=== PATIENT | female | born 1950 | race Caucasian/White ===

== ENCOUNTER 2016-06-17 17:51 | Emergency (ER) | payer OTHER ==
[~2016-06-17 17:51] MED LIST: CRES5TAB; DIOV80TA
[2016-06-17] MEDS ORDERED: METHOCARBAMOL 500 MG TAB As Ordered ONE (18:50)
[2016-06-17] MEDS ORDERED: NORCO, ANEXSIA 5/325MG TABLET (HYDROcodone/ACETAMINOPHEN) As Ordered ONE (18:50)
--- NOTE | 2016-06-17 20:30 | REPUSA ---
CLINICAL HISTORY: Trauma. TECHNIQUE: Multiple axial CT images were obtained through the brain without IV contrast material. COMMENTS: There is normal configuration of sella turcica. There are no intra or extra-axial collections. There is no mass effect or midline shift. There is no evidence of hematoma formation. No hydrocephalus is p resent. The ventricles are symmetrical. No abnormal calcifications are present. There is diffuse age-appropriate cerebellar and cerebral atrophy with proportionally dilated ventricl es and cortical sulci. There are bilateral periventricular and subcortical white matter hypolucencies compatible with mild c hronic microvascular disease. Otherwise, no significant focal abnormalities are seen either in the posterior fossa or supratentoria l compartment. IMPRESSION: 1. Age-appropriate cerebellar and cerebral atrophy. 2. Mild chronic microvascular disease. 3. No evidence of acute intracranial pathology. Thank you for your kind referral of this patient.
--- NOTE | 2016-06-17 20:40 | REPUSA ---
CLINICAL HISTORY: Neck pain. Trauma. TECHNIQUE: Multiple axial images were obtained through the cervical spine. Images were also reconstru cted in coronal and sagittal planes. The study was performed without IV contrast. COMMENTS: There is no fracture or spondylolisthesis visualized. The paraspinal soft tissues are unremarkable. T here are no lytic or blastic lesions. Straightening of cervical lordosis is seen, suggesting muscular spasm. There is evidence of multileve l disk disease, demonstrated by osteophytosis and endplate sclerosis. IMPRESSION: 1. No fracture or spondylolisthesis. 2. Straightening of cervical lordosis is seen, suggesting muscular spasm. 3. Multilevel spondylosis. Thank you for your kind referral of this patient.
[2016-06-17] MEDS ORDERED: NORCO 5/325MG TABLET (BULK) As Ordered ONE (21:07)
--- NOTE | 2016-06-17 21:16 | EDDOCDS ---
Nurse's Notes [facility] Name: Nydia Bey Age: 66 yrs Sex: Female : 1950 Arrival Date: 06/17/2016 Time: 17:51 Bed PR1 / 25 Private MD: Candice Theodore M Diagnosis: Unspecified injury of head;Concussion;Cervicalgia Presentation: 06/17 17:54 Presenting complaint: Patient states: slipped in driveway approx 1600 today fell jjr backwards striking head, reports nausea and pain. Adult Sepsis Screening: The patient does not have new or worsening altered mentation. Patient's respiratory rate is less than 22. Systolic blood pressure is greater than 100. Patient has a qSOFA score of 0- Negative Sepsis Screen. Suicide/Homicide risk assessment- the patient denies having any suicidal and/or homicidal ideations and does not present with any other emotional, behavioral or mental health complaints. Status: Patient is not a telephone answering service operator or dependent. Transition of care: patient was not received from another setting of care. 17:54 Acuity: MARY Level 4 jjr 17:54 Method Of Arrival: Walkin/Carried/Asstd jjr Triage Assessment: 17:57 General: Appears in no apparent distress. Pain: Location: back of head, back of neck jjr and posterior chest. Neurological: Reports headache. GI: Reports nausea. Musculoskeletal: Range of motion intact in all extremities. cervical collar applied due to tenderness at base of spine. Historical: - Allergies: no known allergies; - Home Meds: 1. Diovan HCT 80-12.5 mg Oral tab 1 tab once daily - PMHx: Hypertension; - PSHx: ; - Social history: Smoking status: Patient states was never smoker of tobacco. No barriers to communication noted, The patient speaks fluent Macedonian. - Family history: Not pertinent. - : The pt / caregiver states he / she is not on anticoagulants. Home medication list is obtained from the patient. - Exposure Risk Screening:: None identified. Screenin:11 Screening information is obtained from the patient. Fall risk: No risks identified. kmg1 Assistance ADL's: requires no assistance with activities of daily living. Abuse/DV Screen: The patient / caregiver reports he/she is: not in a situation that causes fear, pain or injury. Nutritional screening: No deficits noted. Advance Directives: There is no active DNR order. home support is adequate. Assessment: 21:11 General: Appears in no apparent distress, comfortable, Behavior is appropriate for age, kmg1 cooperative. Pain: Location: posterior chest and back of neck and back of head Pain currently is 7 out of 10 on a pain scale. Quality of pain is described as aching. Neurological: Level of Consciousness is awake, alert, Oriented to person, place, time. Musculoskeletal: Circulation, motion, and sensation intact Capillary refill < 3 seconds. Vital Signs: 17:52 BP 132 / 60; Pulse 89; Resp 18; Temp 97.1(O); Pulse Ox 99% on R/A; Weight 58.97 kg (R); dd6 Height 5 ft. 2 in. (157.48 cm) (R); 21:00 BP 118 / 63; Pulse 65; Resp 18; Temp 97.3(O); Pulse Ox 100% on R/A; Pain 7/10; ct3 21:15 Pain 7/10; slm 21:15 Pain 7/10; slm 17:52 Body Mass Index 23.78 (58.97 kg, 157.48 cm) dd6 Vitals: 17:52 Log In Time: June 17, 2016 at 17:50. dd6 ED Course: 17:52 Patient visited by Sunny Roe PCA. dd6 17:52 Candice Theodore is Private Physician. dd6 17:52 Patient moved to Waiting dd6 17:53 Patient moved to Pre RCE dd6 17:55 Triage Initiated jjr 18:13 Patient moved to Triage 2 jmb 18:37 Alexsander Ortiz [facility]C [facility] ck7 18:37 Cristin Watson MD is Attending Physician. ck7 18:37 Patient visited by Alexsander Ortiz RPA-C. ck7 18:51 Patient moved to TR1 jmb 19:09 Patient visited by Inessa Lee PCA. ct3 19:43 Patient visited by Inessa Lee PCA. ct3 20:25 Patient visited by Inessa Lee PCA. ct3 20:33 CT Head Without Contrast Returned. EDMS 20:43 Patient moved to PR1 / 25 jmb 20:56 Patient visited by Inessa Lee PCA. ct3 20:58 Candice Theodore is Referral Physician. ck7 21:02 Patient visited by Inessa Lee PCA. ct3 21:14 The patient / caregiver is instructed regarding the plan of care and ED course. Patient slm has correct armband on for positive identification. Bed in low position. Call light in reach. Side rails up X 1. 21:14 No IV's were initiated during this patient's visit. No procedures done that require slm assistance. Administered Medications: 18:51 Drug: HYDROcodone-acetaminophen 1 tabs [hydrocodone 5 mg-acetaminophen 325 mg tablet (1 jmb tabs)] Route: PO; 21:15 Follow up: Pain 7/10 Adult slm 18:51 Drug: Methocarbamol 1 grams [methocarbamol 500 mg tablet (2 tabs)] Route: PO; jmb 21:15 Follow up: Pain 7/10 Adult slm Order Results: Radiology Order: CT Head Without Contrast Test: CT Head Without Contrast REASON FOR EXAMINATION: FALL, HEAD INJURY, +[place], +NAUSEA, R/O BLEED; ; CLINICAL HISTORY: Trauma.; TECHNIQUE: Multiple axial CT images were obtained through the brain without IV contrast material.; COMMENTS:; There is normal configuration of sella turcica. There are no intra or extra-axial collections. There; is no mass effect or midline shift. There is no evidence of hematoma formation. No hydrocephalus is p; resent. The ventricles are symmetrical. No abnormal calcifications are present.; There is diffuse age-appropriate cerebellar and cerebral atrophy with proportionally dilated ventricl; es and cortical sulci.; There are bilateral periventricular and subcortical white matter hypolucencies compatible with mild c; hronic microvascular disease.; Otherwise, no significant focal abnormalities are seen either in the posterior fossa or supratentoria; l compartment.; IMPRESSION:; 1. Age-appropriate cerebellar and cerebral atrophy.; 2. Mild chronic microvascular disease.; 3. No evidence of acute intracranial pathology.; Thank you for your kind referral of this patient.; ; ; Outcome: 20:59 Discharge ordered by Provider. ck7 21:14 Discharge Assessment: Patient awake, alert and oriented x 3. No cognitive and/or slm functional deficits noted. Patient verbalized understanding of disposition instructions. patient administered narcotics - yes. Pt provided with safe discharge. The following High Risk Discharge criteria are identified: None. Discharged to home ambulatory. Condition: good Condition: improved. Discharge instructions given to patient, Instructed on discharge instructions, follow up and referral plans. medication usage, no driving heavy equipment, Demonstrated understanding of instructions, medications, Pt was receptive of discharge instructions/ teaching. Prescriptions given X 3. CT Study completed. Property :Personal belongings accompany Pt. 21:15 Patient left the ED. slm Signatures: Dispatcher [employer] EDMS Sofiya Hopper, RN RN kmg1 Cara Baeza, RN RN jSunny Murguia, AUCTIONEER AUTOMOBILE AUCTIONEER AUTOMOBILE dd6 Inessa Lee, AUCTIONEER AUTOMOBILE AUCTIONEER AUTOMOBILE ct3 Alexsander Ortiz, RPA-C RPA-Cck7 Aidan Chau,RN RN Elizabeth Saeed,SURGICAL SERVICES DIRECTOR SURGICAL SERVICES DIRECTOR slm MTDIlda
--- NOTE | 2016-06-17 21:16 | EDDOCDS ---
Physician Documentation [facility] Name: Nydia Bey Age: 66 yrs Sex: Female : 1950 Arrival Date: 06/17/2016 Time: 17:51 Bed PR Private MD: Candice Theodore M Disposition: 06/17/16 20:59 Discharged to Home/Self Care. Impression: Unspecified injury of head, Concussion, Cervicalgia. - Condition is Stable. - Discharge Instructions: Concussion, Adult, Head Injury, Adult, Soft Tissue Injury of the Neck. - Prescriptions for Ibuprofen 600 mg Oral Tablet - take 1 tablet by ORAL route every 6 hours As needed take with food; 30 tablet. [place] 5- 325 mg Oral Tablet - take 1 tablet by ORAL route every 6 hours As needed MDD: 4 tabs; 16 tablet. Robaxin 500 mg Oral Tablet - take 2 tablet by ORAL route every 6 hours As needed; 40 tablet. - Medication Reconciliation, Local Pharmacy Hours form. - Follow up: Candice Theodore; When: 2 - 3 days; Reason: Recheck today's complaints, Continuance of care. - Problem is new. - Symptoms have improved. - Notes: USE MEDICATIONS INSTRUCTED, FOLLOW UP WITH YOUR DOCTOR IN 2-3 DAYS, RETURN TO THE ER IF THE SYMPTOMS WORSEN OR BECOME CONCERNING Historical: - Allergies: no known allergies; - Home Meds: 1. Diovan HCT 80-12.5 mg Oral tab 1 tab once daily - PMHx: Hypertension; - PSHx: ; - Social history: Smoking status: Patient states was never smoker of tobacco. No barriers to communication noted, The patient speaks fluent Botswanan. - Family history: Not pertinent. - : The pt / caregiver states he / she is not on anticoagulants. Home medication list is obtained from the patient. - Exposure Risk Screening:: None identified. Vital Signs: 06/17 17:52 BP 132 / 60; Pulse 89; Resp 18; Temp 97.1(O); Pulse Ox 99% on R/A; Weight 58.97 kg / dd6 130.01 lbs (R); Height 5 ft. 2 in. (157.48 cm) (R); 21:00 BP 118 / 63; Pulse 65; Resp 18; Temp 97.3(O); Pulse Ox 100% on R/A; Pain 7/10; ct3 21:15 Pain 7/10; slm 21:15 Pain 7/10; slm 17:52 Body Mass Index 23.78 (58.97 kg, 157.48 cm) dd6 MDM: 18:47 HYDROcodone-acetaminophen 5 mg-325 mg 1 tabs PO once ordered. ck7 18:47 Methocarbamol 1 grams PO once ordered. ck7 18:48 CT Head Without Contrast Ordered. EDMS 18:49 CT Spine,Cervical W/o Contrast Ordered. EDMS 21:00 HYDROcodone-acetaminophen 4 pack- 5 mg-325 mg 1 packets PO Per package directions; ck7 Dispense with patient. 1 po q4h prn for pain ordered. Administered Medications: 18:51 Drug: HYDROcodone-acetaminophen 1 tabs [hydrocodone 5 mg-acetaminophen 325 mg tablet (1 jmb tabs)] Route: PO; 21:15 Follow up: Pain 7 Adult slm 18:51 Drug: Methocarbamol 1 grams [methocarbamol 500 mg tablet (2 tabs)] Route: PO; jmb 21:15 Follow up: Pain 11/27 Adult slm Signatures: Dispatcher [employer] EDMS Cara Baeza, RN RN Alexsander Block, EDMUNDOC RPA-CckElizabeth Hazel LPN LPN Aidan Jimenez RN MTDD
--- NOTE | 2016-06-19 22:16 | EDDOCDS ---
Physician Documentation [facility] Name: Nydia Bey Age: 66 yrs Sex: Female : 1950 Arrival Date: 06/17/2016 Time: 17:51 Bed PR Private MD: Candice Theodore M Disposition: 06/17/16 20:59 Discharged to Home/Self Care. Impression: Unspecified injury of head, Concussion, Cervicalgia. - Condition is Stable. - Discharge Instructions: Concussion, Adult, Head Injury, Adult, Soft Tissue Injury of the Neck. - Prescriptions for Ibuprofen 600 mg Oral Tablet - take 1 tablet by ORAL route every 6 hours As needed take with food; 30 tablet. [place] 5- 325 mg Oral Tablet - take 1 tablet by ORAL route every 6 hours As needed MDD: 4 tabs; 16 tablet. Robaxin 500 mg Oral Tablet - take 2 tablet by ORAL route every 6 hours As needed; 40 tablet. - Medication Reconciliation, Local Pharmacy Hours form. - Follow up: Candice Theodore; When: 2 - 3 days; Reason: Recheck today's complaints, Continuance of care. - Problem is new. - Symptoms have improved. - Notes: USE MEDICATIONS INSTRUCTED, FOLLOW UP WITH YOUR DOCTOR IN 2-3 DAYS, RETURN TO THE ER IF THE SYMPTOMS WORSEN OR BECOME CONCERNING Historical: - Allergies: no known allergies; - Home Meds: 1. Diovan HCT 80-12.5 mg Oral tab 1 tab once daily - PMHx: Hypertension; - PSHx: ; - Social history: Smoking status: Patient states was never smoker of tobacco. No barriers to communication noted, The patient speaks fluent Uruguayan. - Family history: Not pertinent. - : The pt / caregiver states he / she is not on anticoagulants. Home medication list is obtained from the patient. - Exposure Risk Screening:: None identified. Vital Signs: 06/17 17:52 BP 132 / 60; Pulse 89; Resp 18; Temp 97.1(O); Pulse Ox 99% on R/A; Weight 58.97 kg / dd6 130.01 lbs (R); Height 5 ft. 2 in. (157.48 cm) (R); 21:00 BP 118 / 63; Pulse 65; Resp 18; Temp 97.3(O); Pulse Ox 100% on R/A; Pain 7/10; ct3 21:15 Pain 7/10; slm 21:15 Pain 7/10; slm 17:52 Body Mass Index 23.78 (58.97 kg, 157.48 cm) dd6 MDM: 18:47 HYDROcodone-acetaminophen 5 mg-325 mg 1 tabs PO once ordered. ck7 18:47 Methocarbamol 1 grams PO once ordered. ck7 18:48 CT Head Without Contrast Ordered. EDMS 18:49 CT Spine,Cervical W/o Contrast Ordered. EDMS 21:00 HYDROcodone-acetaminophen 4 pack- 5 mg-325 mg 1 packets PO Per package directions; ck7 Dispense with patient. 1 po q4h prn for pain ordered. 06/18 18:56 T-Sheet-- Draft Copy was scanned into [employer] and attached to record. kf3 Administered Medications: 06/17 18:51 Drug: HYDROcodone-acetaminophen 1 tabs [hydrocodone 5 mg-acetaminophen 325 mg tablet (1 jmb tabs)] Route: PO; 21:15 Follow up: Pain 7/10 Adult slm 18:51 Drug: Methocarbamol 1 grams [methocarbamol 500 mg tablet (2 tabs)] Route: PO; jmb 21:15 Follow up: Pain 7/10 Adult slm 21:17 Drug: HYDROcodone-acetaminophen 4 pack- 1 packets [hydrocodone 5 mg-acetaminophen 325 slm mg tablet (1 tabs)] {Co-Signature: kmg1 (Sofiya Hopper RN).} Route: PO; Signatures: Dispatcher [employer] EDHI Richy Arroyo, Reg Reg kf3 Cara Baeza, RN RN Alexsander Block, RPA-C RPA-Cck7 Elizabeth Hines LPN LPN slAidan Jimenez RN, RN The chart was reviewed and I authenticate all verbal orders and agree with the evaluation and treatment provided.Attachments: 06/18 18:56 T-Sheet-- Draft Copy kf3 Chart Complete MTDD
--- NOTE | 2016-06-19 22:16 | EDDOCDS ---
Nurse's Notes [facility] Name: Nydia Bey Age: 66 yrs Sex: Female : 1950 Arrival Date: 06/17/2016 Time: 17:51 Bed PR1 / 25 Private MD: Candice Theodore M Diagnosis: Unspecified injury of head;Concussion;Cervicalgia Presentation: 06/17 17:54 Presenting complaint: Patient states: slipped in driveway approx 1600 today fell jjr backwards striking head, reports nausea and pain. Adult Sepsis Screening: The patient does not have new or worsening altered mentation. Patient's respiratory rate is less than 22. Systolic blood pressure is greater than 100. Patient has a qSOFA score of 0- Negative Sepsis Screen. Suicide/Homicide risk assessment- the patient denies having any suicidal and/or homicidal ideations and does not present with any other emotional, behavioral or mental health complaints. Status: Patient is not a family services worker or dependent. Transition of care: patient was not received from another setting of care. 17:54 Acuity: MARY Level 4 jjr 17:54 Method Of Arrival: Walkin/Carried/Asstd jjr Triage Assessment: 17:57 General: Appears in no apparent distress. Pain: Location: back of head, back of neck jjr and posterior chest. Neurological: Reports headache. GI: Reports nausea. Musculoskeletal: Range of motion intact in all extremities. cervical collar applied due to tenderness at base of spine. Historical: - Allergies: no known allergies; - Home Meds: 1. Diovan HCT 80-12.5 mg Oral tab 1 tab once daily - PMHx: Hypertension; - PSHx: ; - Social history: Smoking status: Patient states was never smoker of tobacco. No barriers to communication noted, The patient speaks fluent Yakut. - Family history: Not pertinent. - : The pt / caregiver states he / she is not on anticoagulants. Home medication list is obtained from the patient. - Exposure Risk Screening:: None identified. Screenin:11 Screening information is obtained from the patient. Fall risk: No risks identified. kmg1 Assistance ADL's: requires no assistance with activities of daily living. Abuse/DV Screen: The patient / caregiver reports he/she is: not in a situation that causes fear, pain or injury. Nutritional screening: No deficits noted. Advance Directives: There is no active DNR order. home support is adequate. Assessment: 21:11 General: Appears in no apparent distress, comfortable, Behavior is appropriate for age, kmg1 cooperative. Pain: Location: posterior chest and back of neck and back of head Pain currently is 7 out of 10 on a pain scale. Quality of pain is described as aching. Neurological: Level of Consciousness is awake, alert, Oriented to person, place, time. Musculoskeletal: Circulation, motion, and sensation intact Capillary refill < 3 seconds. Vital Signs: 17:52 BP 132 / 60; Pulse 89; Resp 18; Temp 97.1(O); Pulse Ox 99% on R/A; Weight 58.97 kg (R); dd6 Height 5 ft. 2 in. (157.48 cm) (R); 21:00 BP 118 / 63; Pulse 65; Resp 18; Temp 97.3(O); Pulse Ox 100% on R/A; Pain 7/10; ct3 21:15 Pain 7/10; slm 21:15 Pain 7/10; slm 17:52 Body Mass Index 23.78 (58.97 kg, 157.48 cm) dd6 Vitals: 17:52 Log In Time: June 17, 2016 at 17:50. dd6 ED Course: 17:52 Patient visited by Sunny Roe PCA. dd6 17:52 Candice Theodore is Private Physician. dd6 17:52 Patient moved to Waiting dd6 17:53 Patient moved to Pre RCE dd6 17:55 Triage Initiated jjr 18:13 Patient moved to Triage 2 jmb 18:37 Alexsander Ortiz RPA-C is [facility]. ck7 18:37 Cristin Watson MD is Attending Physician. ck7 18:37 Patient visited by Alexsander Ortiz RPA-C. ck7 18:51 Patient moved to TR1 jmb 19:09 Patient visited by Inessa Lee PCA. ct3 19:43 Patient visited by Inessa Lee PCA. ct3 20:25 Patient visited by Inessa Lee PCA. ct3 20:33 CT Head Without Contrast Returned. EDMS 20:43 Patient moved to PR1 / 25 jmb 20:56 Patient visited by Inessa Lee PCA. ct3 20:58 Candice Theodore is Referral Physician. ck7 21:02 Patient visited by Inessa Lee PCA. ct3 21:14 The patient / caregiver is instructed regarding the plan of care and ED course. Patient slm has correct armband on for positive identification. Bed in low position. Call light in reach. Side rails up X 1. 21:14 No IV's were initiated during this patient's visit. No procedures done that require slm assistance. 21:18 CT Spine,Cervical W/o Contrast Returned. EDMS 06/18 18:56 T-Sheet-- Draft Copy was scanned into [employer] and attached to record. kf3 Administered Medications: 06/17 18:51 Drug: HYDROcodone-acetaminophen 1 tabs [hydrocodone 5 mg-acetaminophen 325 mg tablet (1 jmb tabs)] Route: PO; 21:15 Follow up: Pain 7/10 Adult slm 18:51 Drug: Methocarbamol 1 grams [methocarbamol 500 mg tablet (2 tabs)] Route: PO; jmb 21:15 Follow up: Pain 7/10 Adult slm 21:17 Drug: HYDROcodone-acetaminophen 4 pack- 1 packets [hydrocodone 5 mg-acetaminophen 325 slm mg tablet (1 tabs)] {Co-Signature: kmg1 (Sofiya Hopper RN).} Route: PO; Order Results: Radiology Order: CT Head Without Contrast Test: CT Head Without Contrast REASON FOR EXAMINATION: FALL, HEAD INJURY, +[place], +NAUSEA, R/O BLEED; ; CLINICAL HISTORY: Trauma.; TECHNIQUE: Multiple axial CT images were obtained through the brain without IV contrast material.; COMMENTS:; There is normal configuration of sella turcica. There are no intra or extra-axial collections. There; is no mass effect or midline shift. There is no evidence of hematoma formation. No hydrocephalus is p; resent. The ventricles are symmetrical. No abnormal calcifications are present.; There is diffuse age-appropriate cerebellar and cerebral atrophy with proportionally dilated ventricl; es and cortical sulci.; There are bilateral periventricular and subcortical white matter hypolucencies compatible with mild c; hronic microvascular disease.; Otherwise, no significant focal abnormalities are seen either in the posterior fossa or supratentoria; l compartment.; IMPRESSION:; 1. Age-appropriate cerebellar and cerebral atrophy.; 2. Mild chronic microvascular disease.; 3. No evidence of acute intracranial pathology.; Thank you for your kind referral of this patient.; ; ; Radiology Order: CT Spine,Cervical W/o Contrast Test: CT Spine,Cervical W/o Contrast REASON FOR EXAMINATION: FALL, NECK INJURY R/O FX; ; CLINICAL HISTORY: Neck pain. Trauma.; TECHNIQUE: Multiple axial images were obtained through the cervical spine. Images were also reconstru; cted in coronal and sagittal planes. The study was performed without IV contrast.; COMMENTS:; There is no fracture or spondylolisthesis visualized. The paraspinal soft tissues are unremarkable. T; here are no lytic or blastic lesions.; Straightening of cervical lordosis is seen, suggesting muscular spasm. There is evidence of multileve; l disk disease, demonstrated by osteophytosis and endplate sclerosis.; IMPRESSION:; 1. No fracture or spondylolisthesis.; 2. Straightening of cervical lordosis is seen, suggesting muscular spasm.; 3. Multilevel spondylosis.; Thank you for your kind referral of this patient.; ; Outcome: 20:59 Discharge ordered by Provider. ck7 21:14 Discharge Assessment: Patient awake, alert and oriented x 3. No cognitive and/or slm functional deficits noted. Patient verbalized understanding of disposition instructions. patient administered narcotics - yes. Pt provided with safe discharge. The following High Risk Discharge criteria are identified: None. Discharged to home ambulatory. Condition: good Condition: improved. Discharge instructions given to patient, Instructed on discharge instructions, follow up and referral plans. medication usage, no driving heavy equipment, Demonstrated understanding of instructions, medications, Pt was receptive of discharge instructions/ teaching. Prescriptions given X 3. CT Study completed. Property :Personal belongings accompany Pt. 21:15 Patient left the ED. slm Signatures: Dispatcher [employer] EDMS Sofiya Hopper RN RN kmg1 Richy Arroyo, Reg Reg kf3 Cara Baeza RN RN jSunny Murguia, RUBBER GOODS TESTER RUBBER GOODS TESTER dd6 Inessa Lee, RUBBER GOODS TESTER RUBBER GOODS TESTER ct3 Alexsander Ortiz, RPA-C RPA-Cck7 Aidan Chau,RN RN jmb Elizabeth Hines,MERCHANDISE EXECUTION LEADER MERCHANDISE EXECUTION LEADER slm Sofiya Hopper RN kmg1 Chart Complete MTDD
--- NOTE | 2016-06-19 22:16 | EDDOCDS ---
Physician Documentation [facility] Name: Nydia Bey Age: 66 yrs Sex: Female : 1950 Arrival Date: 06/17/2016 Time: 17:51 Bed PR Private MD: Candice Theodore M Disposition: 06/17/16 20:59 Discharged to Home/Self Care. Impression: Unspecified injury of head, Concussion, Cervicalgia. - Condition is Stable. - Discharge Instructions: Concussion, Adult, Head Injury, Adult, Soft Tissue Injury of the Neck. - Prescriptions for Ibuprofen 600 mg Oral Tablet - take 1 tablet by ORAL route every 6 hours As needed take with food; 30 tablet. [place] 5- 325 mg Oral Tablet - take 1 tablet by ORAL route every 6 hours As needed MDD: 4 tabs; 16 tablet. Robaxin 500 mg Oral Tablet - take 2 tablet by ORAL route every 6 hours As needed; 40 tablet. - Medication Reconciliation, Local Pharmacy Hours form. - Follow up: Candice Theodore; When: 2 - 3 days; Reason: Recheck today's complaints, Continuance of care. - Problem is new. - Symptoms have improved. - Notes: USE MEDICATIONS INSTRUCTED, FOLLOW UP WITH YOUR DOCTOR IN 2-3 DAYS, RETURN TO THE ER IF THE SYMPTOMS WORSEN OR BECOME CONCERNING Historical: - Allergies: no known allergies; - Home Meds: 1. Diovan HCT 80-12.5 mg Oral tab 1 tab once daily - PMHx: Hypertension; - PSHx: ; - Social history: Smoking status: Patient states was never smoker of tobacco. No barriers to communication noted, The patient speaks fluent Montserratian. - Family history: Not pertinent. - : The pt / caregiver states he / she is not on anticoagulants. Home medication list is obtained from the patient. - Exposure Risk Screening:: None identified. Vital Signs: 06/17 17:52 BP 132 / 60; Pulse 89; Resp 18; Temp 97.1(O); Pulse Ox 99% on R/A; Weight 58.97 kg / dd6 130.01 lbs (R); Height 5 ft. 2 in. (157.48 cm) (R); 21:00 BP 118 / 63; Pulse 65; Resp 18; Temp 97.3(O); Pulse Ox 100% on R/A; Pain 7/10; ct3 21:15 Pain 7/10; slm 21:15 Pain 7/10; slm 17:52 Body Mass Index 23.78 (58.97 kg, 157.48 cm) dd6 MDM: 18:47 HYDROcodone-acetaminophen 5 mg-325 mg 1 tabs PO once ordered. ck7 18:47 Methocarbamol 1 grams PO once ordered. ck7 18:48 CT Head Without Contrast Ordered. EDMS 18:49 CT Spine,Cervical W/o Contrast Ordered. EDMS 21:00 HYDROcodone-acetaminophen 4 pack- 5 mg-325 mg 1 packets PO Per package directions; ck7 Dispense with patient. 1 po q4h prn for pain ordered. 06/18 18:56 T-Sheet-- Draft Copy was scanned into [employer] and attached to record. kf3 Administered Medications: 06/17 18:51 Drug: HYDROcodone-acetaminophen 1 tabs [hydrocodone 5 mg-acetaminophen 325 mg tablet (1 jmb tabs)] Route: PO; 21:15 Follow up: Pain 7/10 Adult slm 18:51 Drug: Methocarbamol 1 grams [methocarbamol 500 mg tablet (2 tabs)] Route: PO; jmb 21:15 Follow up: Pain 7/10 Adult slm 21:17 Drug: HYDROcodone-acetaminophen 4 pack- 1 packets [hydrocodone 5 mg-acetaminophen 325 slm mg tablet (1 tabs)] {Co-Signature: kmg1 (Sofiya Hopper RN).} Route: PO; Signatures: Dispatcher [employer] EDIA Richy Arroyo, Reg Reg kf3 Cara Baeza, RN RN Alexsander Block, RPA-C RPA-Cck7 Elizabeth Hines LPN LPN slAidan Jimenez RN, RN The chart was reviewed and I authenticate all verbal orders and agree with the evaluation and treatment provided.Attachments: 06/18 18:56 T-Sheet-- Draft Copy kf3 Chart Complete MTDD
--- NOTE | 2016-06-20 15:11 | EDDOCDS ---
Nurse's Notes [facility] Name: Nydia Bey Age: 66 yrs Sex: Female : 1950 Arrival Date: 06/17/2016 Time: 17:51 Bed PR1 / 25 Private MD: Candice Theodore M Diagnosis: Unspecified injury of head;Concussion;Cervicalgia Presentation: 06/17 17:54 Presenting complaint: Patient states: slipped in driveway approx 1600 today fell jjr backwards striking head, reports nausea and pain. Adult Sepsis Screening: The patient does not have new or worsening altered mentation. Patient's respiratory rate is less than 22. Systolic blood pressure is greater than 100. Patient has a qSOFA score of 0- Negative Sepsis Screen. Suicide/Homicide risk assessment- the patient denies having any suicidal and/or homicidal ideations and does not present with any other emotional, behavioral or mental health complaints. Status: Patient is not a convention services director or dependent. Transition of care: patient was not received from another setting of care. 17:54 Acuity: MARY Level 4 jjr 17:54 Method Of Arrival: Walkin/Carried/Asstd jjr Triage Assessment: 17:57 General: Appears in no apparent distress. Pain: Location: back of head, back of neck jjr and posterior chest. Neurological: Reports headache. GI: Reports nausea. Musculoskeletal: Range of motion intact in all extremities. cervical collar applied due to tenderness at base of spine. Historical: - Allergies: no known allergies; - Home Meds: 1. Diovan HCT 80-12.5 mg Oral tab 1 tab once daily - PMHx: Hypertension; - PSHx: ; - Social history: Smoking status: Patient states was never smoker of tobacco. No barriers to communication noted, The patient speaks fluent Wolof. - Family history: Not pertinent. - : The pt / caregiver states he / she is not on anticoagulants. Home medication list is obtained from the patient. - Exposure Risk Screening:: None identified. Screenin:11 Screening information is obtained from the patient. Fall risk: No risks identified. kmg1 Assistance ADL's: requires no assistance with activities of daily living. Abuse/DV Screen: The patient / caregiver reports he/she is: not in a situation that causes fear, pain or injury. Nutritional screening: No deficits noted. Advance Directives: There is no active DNR order. home support is adequate. Assessment: 21:11 General: Appears in no apparent distress, comfortable, Behavior is appropriate for age, kmg1 cooperative. Pain: Location: posterior chest and back of neck and back of head Pain currently is 7 out of 10 on a pain scale. Quality of pain is described as aching. Neurological: Level of Consciousness is awake, alert, Oriented to person, place, time. Musculoskeletal: Circulation, motion, and sensation intact Capillary refill < 3 seconds. Vital Signs: 17:52 BP 132 / 60; Pulse 89; Resp 18; Temp 97.1(O); Pulse Ox 99% on R/A; Weight 58.97 kg (R); dd6 Height 5 ft. 2 in. (157.48 cm) (R); 21:00 BP 118 / 63; Pulse 65; Resp 18; Temp 97.3(O); Pulse Ox 100% on R/A; Pain 7/10; ct3 21:15 Pain 7/10; slm 21:15 Pain 7/10; slm 17:52 Body Mass Index 23.78 (58.97 kg, 157.48 cm) dd6 Vitals: 17:52 Log In Time: June 17, 2016 at 17:50. dd6 ED Course: 17:52 Patient visited by Sunny Roe PCA. dd6 17:52 Candice Theodore is Private Physician. dd6 17:52 Patient moved to Waiting dd6 17:53 Patient moved to Pre RCE dd6 17:55 Triage Initiated jjr 18:13 Patient moved to Triage 2 jmb 18:37 Alexsander Ortiz R[facility]-C is [facility]. ck7 18:37 Cristin Watson MD is Attending Physician. ck7 18:37 Patient visited by Alexsander Ortiz RPA-C. ck7 18:51 Patient moved to TR1 jmb 19:09 Patient visited by Inessa Lee PCA. ct3 19:43 Patient visited by Inessa Lee PCA. ct3 20:25 Patient visited by Inessa Lee PCA. ct3 20:33 CT Head Without Contrast Returned. EDMS 20:43 Patient moved to PR1 / 25 jmb 20:56 Patient visited by Inessa Lee PCA. ct3 20:58 Candice Theodore is Referral Physician. ck7 21:02 Patient visited by Inessa Lee PCA. ct3 21:14 The patient / caregiver is instructed regarding the plan of care and ED course. Patient slm has correct armband on for positive identification. Bed in low position. Call light in reach. Side rails up X 1. 21:14 No IV's were initiated during this patient's visit. No procedures done that require slm assistance. 21:18 CT Spine,Cervical W/o Contrast Returned. EDMS 06/18 18:56 T-Sheet-- Draft Copy was scanned into [email or web address] and attached to record. kf3 Administered Medications: 06/17 18:51 Drug: HYDROcodone-acetaminophen 1 tabs [hydrocodone 5 mg-acetaminophen 325 mg tablet (1 jmb tabs)] Route: PO; 21:15 Follow up: Pain 7/10 Adult slm 18:51 Drug: Methocarbamol 1 grams [methocarbamol 500 mg tablet (2 tabs)] Route: PO; jmb 21:15 Follow up: Pain 7/10 Adult slm 21:17 Drug: HYDROcodone-acetaminophen 4 pack- 1 packets [hydrocodone 5 mg-acetaminophen 325 slm mg tablet (1 tabs)] {Co-Signature: kmg1 (Sofiya Hopper RN).} Route: PO; Order Results: Radiology Order: CT Head Without Contrast Test: CT Head Without Contrast REASON FOR EXAMINATION: FALL, HEAD INJURY, +[place], +NAUSEA, R/O BLEED; ; CLINICAL HISTORY: Trauma.; TECHNIQUE: Multiple axial CT images were obtained through the brain without IV contrast material.; COMMENTS:; There is normal configuration of sella turcica. There are no intra or extra-axial collections. There; is no mass effect or midline shift. There is no evidence of hematoma formation. No hydrocephalus is p; resent. The ventricles are symmetrical. No abnormal calcifications are present.; There is diffuse age-appropriate cerebellar and cerebral atrophy with proportionally dilated ventricl; es and cortical sulci.; There are bilateral periventricular and subcortical white matter hypolucencies compatible with mild c; hronic microvascular disease.; Otherwise, no significant focal abnormalities are seen either in the posterior fossa or supratentoria; l compartment.; IMPRESSION:; 1. Age-appropriate cerebellar and cerebral atrophy.; 2. Mild chronic microvascular disease.; 3. No evidence of acute intracranial pathology.; Thank you for your kind referral of this patient.; ; ; Radiology Order: CT Spine,Cervical W/o Contrast Test: CT Spine,Cervical W/o Contrast REASON FOR EXAMINATION: FALL, NECK INJURY R/O FX; ; CLINICAL HISTORY: Neck pain. Trauma.; TECHNIQUE: Multiple axial images were obtained through the cervical spine. Images were also reconstru; cted in coronal and sagittal planes. The study was performed without IV contrast.; COMMENTS:; There is no fracture or spondylolisthesis visualized. The paraspinal soft tissues are unremarkable. T; here are no lytic or blastic lesions.; Straightening of cervical lordosis is seen, suggesting muscular spasm. There is evidence of multileve; l disk disease, demonstrated by osteophytosis and endplate sclerosis.; IMPRESSION:; 1. No fracture or spondylolisthesis.; 2. Straightening of cervical lordosis is seen, suggesting muscular spasm.; 3. Multilevel spondylosis.; Thank you for your kind referral of this patient.; ; Outcome: 20:59 Discharge ordered by Provider. ck7 21:14 Discharge Assessment: Patient awake, alert and oriented x 3. No cognitive and/or slm functional deficits noted. Patient verbalized understanding of disposition instructions. patient administered narcotics - yes. Pt provided with safe discharge. The following High Risk Discharge criteria are identified: None. Discharged to home ambulatory. Condition: good Condition: improved. Discharge instructions given to patient, Instructed on discharge instructions, follow up and referral plans. medication usage, no driving heavy equipment, Demonstrated understanding of instructions, medications, Pt was receptive of discharge instructions/ teaching. Prescriptions given X 3. CT Study completed. Property :Personal belongings accompany Pt. 21:15 Patient left the ED. slm Signatures: Dispatcher [employer] EDMS Sofiya Hopper RN RN kmg1 Richy Arroyo, Reg Reg kf3 Cara Baeza RN RN jSunny Murguia, BEFORE SCHOOL BEFORE SCHOOL dd6 Inessa Lee, BEFORE SCHOOL BEFORE SCHOOL ct3 Alexsander Ortiz, RPA-C RPA-Cck7 Aidan Chau,RN RN jmb Elizabeth Hines,TALENT ACQUISITION PROJECT MANAGER TALENT ACQUISITION PROJECT MANAGER slm Sofiya Hopper RN kmg1 Chart Complete MTDD
--- NOTE | 2016-06-20 15:11 | EDDOCDS ---
Physician Documentation [facility] Name: Nydia Bey Age: 66 yrs Sex: Female : 1950 Arrival Date: 06/17/2016 Time: 17:51 Bed PR Private MD: Candice Theodore M Disposition: 06/17/16 20:59 Discharged to Home/Self Care. Impression: Unspecified injury of head, Concussion, Cervicalgia. - Condition is Stable. - Discharge Instructions: Concussion, Adult, Head Injury, Adult, Soft Tissue Injury of the Neck. - Prescriptions for Ibuprofen 600 mg Oral Tablet - take 1 tablet by ORAL route every 6 hours As needed take with food; 30 tablet. [place] 5- 325 mg Oral Tablet - take 1 tablet by ORAL route every 6 hours As needed MDD: 4 tabs; 16 tablet. Robaxin 500 mg Oral Tablet - take 2 tablet by ORAL route every 6 hours As needed; 40 tablet. - Medication Reconciliation, Local Pharmacy Hours form. - Follow up: Candice Theodore; When: 2 - 3 days; Reason: Recheck today's complaints, Continuance of care. - Problem is new. - Symptoms have improved. - Notes: USE MEDICATIONS INSTRUCTED, FOLLOW UP WITH YOUR DOCTOR IN 2-3 DAYS, RETURN TO THE ER IF THE SYMPTOMS WORSEN OR BECOME CONCERNING Historical: - Allergies: no known allergies; - Home Meds: 1. Diovan HCT 80-12.5 mg Oral tab 1 tab once daily - PMHx: Hypertension; - PSHx: ; - Social history: Smoking status: Patient states was never smoker of tobacco. No barriers to communication noted, The patient speaks fluent Ethiopian. - Family history: Not pertinent. - : The pt / caregiver states he / she is not on anticoagulants. Home medication list is obtained from the patient. - Exposure Risk Screening:: None identified. Vital Signs: 06/17 17:52 BP 132 / 60; Pulse 89; Resp 18; Temp 97.1(O); Pulse Ox 99% on R/A; Weight 58.97 kg / dd6 130.01 lbs (R); Height 5 ft. 2 in. (157.48 cm) (R); 21:00 BP 118 / 63; Pulse 65; Resp 18; Temp 97.3(O); Pulse Ox 100% on R/A; Pain 7/10; ct3 21:15 Pain 7/10; slm 21:15 Pain 7/10; slm 17:52 Body Mass Index 23.78 (58.97 kg, 157.48 cm) dd6 MDM: 18:47 HYDROcodone-acetaminophen 5 mg-325 mg 1 tabs PO once ordered. ck7 18:47 Methocarbamol 1 grams PO once ordered. ck7 18:48 CT Head Without Contrast Ordered. EDMS 18:49 CT Spine,Cervical W/o Contrast Ordered. EDMS 21:00 HYDROcodone-acetaminophen 4 pack- 5 mg-325 mg 1 packets PO Per package directions; ck7 Dispense with patient. 1 po q4h prn for pain ordered. 06/18 18:56 T-Sheet-- Draft Copy was scanned into [employer] and attached to record. kf3 Administered Medications: 06/17 18:51 Drug: HYDROcodone-acetaminophen 1 tabs [hydrocodone 5 mg-acetaminophen 325 mg tablet (1 jmb tabs)] Route: PO; 21:15 Follow up: Pain 7/10 Adult slm 18:51 Drug: Methocarbamol 1 grams [methocarbamol 500 mg tablet (2 tabs)] Route: PO; jmb 21:15 Follow up: Pain 7/10 Adult slm 21:17 Drug: HYDROcodone-acetaminophen 4 pack- 1 packets [hydrocodone 5 mg-acetaminophen 325 slm mg tablet (1 tabs)] {Co-Signature: kmg1 (Sofiya Hopper RN).} Route: PO; Signatures: Dispatcher [employer] EDDC Richy Arroyo, Reg Reg kf3 Cara Baeza, RN RN Alexsander Block, RPA-C RPA-Cck7 Elizabeth Hines LPN LPN slAidan Jimenez RN, RN The chart was reviewed and I authenticate all verbal orders and agree with the evaluation and treatment provided.Attachments: 06/18 18:56 T-Sheet-- Draft Copy kf3 Chart Complete MTDD
--- NOTE | 2016-06-20 15:11 | EDDOCDS ---
Physician Documentation [facility] Name: Nydia Bey Age: 66 yrs Sex: Female : 1950 Arrival Date: 06/17/2016 Time: 17:51 Bed PR Private MD: Candice Theodore M Disposition: 06/17/16 20:59 Discharged to Home/Self Care. Impression: Unspecified injury of head, Concussion, Cervicalgia. - Condition is Stable. - Discharge Instructions: Concussion, Adult, Head Injury, Adult, Soft Tissue Injury of the Neck. - Prescriptions for Ibuprofen 600 mg Oral Tablet - take 1 tablet by ORAL route every 6 hours As needed take with food; 30 tablet. [place] 5- 325 mg Oral Tablet - take 1 tablet by ORAL route every 6 hours As needed MDD: 4 tabs; 16 tablet. Robaxin 500 mg Oral Tablet - take 2 tablet by ORAL route every 6 hours As needed; 40 tablet. - Medication Reconciliation, Local Pharmacy Hours form. - Follow up: Candice Theodore; When: 2 - 3 days; Reason: Recheck today's complaints, Continuance of care. - Problem is new. - Symptoms have improved. - Notes: USE MEDICATIONS INSTRUCTED, FOLLOW UP WITH YOUR DOCTOR IN 2-3 DAYS, RETURN TO THE ER IF THE SYMPTOMS WORSEN OR BECOME CONCERNING Historical: - Allergies: no known allergies; - Home Meds: 1. Diovan HCT 80-12.5 mg Oral tab 1 tab once daily - PMHx: Hypertension; - PSHx: ; - Social history: Smoking status: Patient states was never smoker of tobacco. No barriers to communication noted, The patient speaks fluent Jordanian. - Family history: Not pertinent. - : The pt / caregiver states he / she is not on anticoagulants. Home medication list is obtained from the patient. - Exposure Risk Screening:: None identified. Vital Signs: 06/17 17:52 BP 132 / 60; Pulse 89; Resp 18; Temp 97.1(O); Pulse Ox 99% on R/A; Weight 58.97 kg / dd6 130.01 lbs (R); Height 5 ft. 2 in. (157.48 cm) (R); 21:00 BP 118 / 63; Pulse 65; Resp 18; Temp 97.3(O); Pulse Ox 100% on R/A; Pain 7/10; ct3 21:15 Pain 7/10; slm 21:15 Pain 7/10; slm 17:52 Body Mass Index 23.78 (58.97 kg, 157.48 cm) dd6 MDM: 18:47 HYDROcodone-acetaminophen 5 mg-325 mg 1 tabs PO once ordered. ck7 18:47 Methocarbamol 1 grams PO once ordered. ck7 18:48 CT Head Without Contrast Ordered. EDMS 18:49 CT Spine,Cervical W/o Contrast Ordered. EDMS 21:00 HYDROcodone-acetaminophen 4 pack- 5 mg-325 mg 1 packets PO Per package directions; ck7 Dispense with patient. 1 po q4h prn for pain ordered. 06/18 18:56 T-Sheet-- Draft Copy was scanned into [employer] and attached to record. kf3 Administered Medications: 06/17 18:51 Drug: HYDROcodone-acetaminophen 1 tabs [hydrocodone 5 mg-acetaminophen 325 mg tablet (1 jmb tabs)] Route: PO; 21:15 Follow up: Pain 7/10 Adult slm 18:51 Drug: Methocarbamol 1 grams [methocarbamol 500 mg tablet (2 tabs)] Route: PO; jmb 21:15 Follow up: Pain 7/10 Adult slm 21:17 Drug: HYDROcodone-acetaminophen 4 pack- 1 packets [hydrocodone 5 mg-acetaminophen 325 slm mg tablet (1 tabs)] {Co-Signature: kmg1 (Sofiya Hopper RN).} Route: PO; Signatures: Dispatcher [employer] EDTX Richy Arroyo, Reg Reg kf3 Cara Baeza, RN RN Alexsander Block, RPA-C RPA-Cck7 Elizabeth Hines LPN LPN slAidan Jimenez RN, RN The chart was reviewed and I authenticate all verbal orders and agree with the evaluation and treatment provided.Attachments: 06/18 18:56 T-Sheet-- Draft Copy kf3 Chart Complete MTDD
== END 2016-06-17 21:15 | disposition home or self-care (01) ==
LOC: M ED 17:51
DX: S06.0X0A Concussion without loss of consciousness, initial encounter (principal); W01.0XXA Fall on same level from slipping, tripping and stumbling without subsequent striking against object, initial encounter; Y92.014 Private driveway to single-family (private) house as the place of occurrence of the external cause; Y93.89 Activity, other specified; Y99.8 Other external cause status; M54.2 Cervicalgia; I10 Essential (primary) hypertension; Z79.899 Other long term (current) drug therapy

== ENCOUNTER → 2016-07-05 | Outpatient (REF) | payer MEDICARE, OTHER | LOC: M LAB REF 12:59 | PROVIDERS: ATTEND Physician Assistant | DX: N39.0 Urinary tract infection, site not specified (principal) ==

== ENCOUNTER → 2017-02-02 | Outpatient (REF) | payer MEDICARE, OTHER | LOC: M LAB REF 17:06 | PROVIDERS: ATTEND Otolaryngology | DX: D23.20 Other benign neoplasm of skin of unspecified ear and external auricular canal (principal) ==

== ENCOUNTER → 2018-01-24 | Outpatient (CLI) | payer MEDICARE, OTHER ==
[2018-01-24 10:51] LABS: BASO # 0.1 10^3/uL (0.0-0.2); EOS # 0.1 10^3/uL (0.0-0.50); EOS % 2.5 % (0.0-3.0); HEMATOCRIT 39.3 % (36.0-47.0); HEMOGLOBIN 13.1 g/dl (12.0-15.5); LYMPH # 2.4 10^3/uL (1.5-4.5); LYMPH % 46.5 % (24.0-44.0); MEAN CORPUSCULAR HEMOGLOBIN 30.1 pg (27.0-33.0); MEAN CORPUSCULAR HGB CONC 33.3 g/dl (32.0-36.5); MEAN CORPUSCULAR VOLUME 90.3 fl (80.0-96.0); MONO # 0.4 10^3/uL (0.0-0.8); MONO % 6.9 % (0.0-5.0); NEUTROPHILS # 2.2 10^3/uL (1.8-7.7); NEUTROPHILS % 43.1 % (36.0-66.0); PLATELET COUNT, AUTOMATED 246 10^3/uL (150-450); RED BLOOD COUNT 4.35 10^6/uL (4.00-5.40); RED CELL DISTRIBUTION WIDTH 12.6 % (11.5-14.5); WHITE BLOOD COUNT 5.2 10^3/uL (4.0-10.0)
[2018-01-24 11:14] LABS: ALBUMIN 3.8 GM/DL (3.2-5.2); ALBUMIN/GLOBULIN RATIO 1.15 (1.00-1.93); ALKALINE PHOSPHATASE 103 U/L (45-117); ALT/SGPT 16 U/L (12-78); ANION GAP 6 MEQ/L (8-16); AST/SGOT 15 U/L (7-37); BILIRUBIN,TOTAL 0.5 MG/DL (0.2-1.0); BLOOD UREA NITROGEN 17 MG/DL (7-18); CALCIUM LEVEL 9.1 MG/DL (8.8-10.2); CARBON DIOXIDE LEVEL 31 MEQ/L (21-32); CHLORIDE LEVEL 104 MEQ/L (98-107); CHOLESTEROL LEVEL 219 MG/DL (<200); CHOLESTEROL RISK RATIO 2.807 (<5); GLOMERULAR FILTRATION RATE > 60.0 (>45); GLUCOSE, FASTING 91 MG/DL (70-100); HDL CHOLESTEROL 78 MG/DL (>40); NON-HDL-C 141 MG/DL; POTASSIUM SERUM 3.8 MEQ/L (3.5-5.1); SODIUM LEVEL 141 MEQ/L (136-145); TOTAL PROTEIN 7.1 GM/DL (6.4-8.2); TRIGLYCERIDES LEVEL 90 MG/DL (<150)
[2018-01-24 13:07] LABS: TOTAL 25(OH) VITAMIN D 18.8 NG/ML (30.0-100.0)
== END ==
LOC: M LAB 09:28
DX: E78.5 Hyperlipidemia, unspecified (principal)
CPT/HCPCS: 84443

== ENCOUNTER → 2018-01-26 | Outpatient (REF) | payer MEDICARE, OTHER | LOC: M LAB REF 17:06 | DX: J02.9 Acute pharyngitis, unspecified (principal) | CPT/HCPCS: 87081 ==

== ENCOUNTER → 2020-06-09 | Outpatient (REF) | payer MEDICARE, OTHER | LOC: M LAB REF 16:22 | PROVIDERS: ATTEND Nurse Practitioner Family | DX: R30.0 Dysuria (principal) ==

== ENCOUNTER → 2020-11-16 | Outpatient (REF) | payer MEDICARE, OTHER ==
[2020-11-16 13:07] LABS: APPEARANCE, URINE HAZY (CLEAR); BACTERIA, URINE AUTO 2+ (NEGATIVE); BILIRUBIN, URINE AUTO NEGATIVE (NEGATIVE); BLOOD, URINE BLOOD 2+ (NEGATIVE); COLOR, URINE YELLOW (YELLOW); GLUCOSE, URINE (UA) AUTO NEGATIVE (NEGATIVE); KETONE, URINE AUTO NEGATIVE (NEGATIVE); LEUKOCYTE ESTERASE, URINE AUTO 3+ (NEGATIVE); NITRITE, URINE AUTO NEGATIVE (NEGATIVE); PROTEIN, URINE AUTO NEGATIVE (NEGATIVE); RBC, URINE AUTO 2 /HPF (0-3); SPECIFIC GRAVITY URINE AUTO 1.003 (1.002-1.035); SQUAMOUS EPITHELIAL CELL UR AU 0 /HPF (0-6); UROBILINOGEN, URINE AUTO 0.2 mg/dL (0.0-2.0); WBC, URINE AUTO TNTC /HPF (0-3)
== END ==
LOC: M LAB REF 12:27
PROVIDERS: ATTEND Physician Assistant Medical
DX: R30.0 Dysuria (principal)

== ENCOUNTER → 2021-01-03 | Outpatient (REF) | payer MEDICARE, OTHER | LOC: EEVIPCON 15:42 → M LAB REF 15:42 | PROVIDERS: ATTEND Physician Assistant | DX: N39.0 Urinary tract infection, site not specified (principal) ==

== ENCOUNTER → 2021-09-23 | Outpatient (REF) | payer MEDICARE, OTHER ==
[2021-09-23 12:56] LABS: APPEARANCE, URINE HAZY (CLEAR); BACTERIA, URINE AUTO NEGATIVE (NEGATIVE); BILIRUBIN, URINE AUTO NEGATIVE (NEGATIVE); BLOOD, URINE BLOOD 1+ (NEGATIVE); COLOR, URINE YELLOW (YELLOW); GLUCOSE, URINE (UA) AUTO NEGATIVE (NEGATIVE); KETONE, URINE AUTO NEGATIVE (NEGATIVE); LEUKOCYTE ESTERASE, URINE AUTO 3+ (NEGATIVE); NITRITE, URINE AUTO NEGATIVE (NEGATIVE); PROTEIN, URINE AUTO NEGATIVE (NEGATIVE); RBC, URINE AUTO 2 /HPF (0-3); SPECIFIC GRAVITY URINE AUTO 1.004 (1.002-1.035); SQUAMOUS EPITHELIAL CELL UR AU 0 /HPF (0-6); UROBILINOGEN, URINE AUTO 0.2 mg/dL (0.0-2.0); WBC, URINE AUTO 137 /HPF (0-3)
== END ==
LOC: M LAB REF 12:29
PROVIDERS: ATTEND Physician Assistant
DX: N39.0 Urinary tract infection, site not specified (principal)

== ENCOUNTER → 2021-09-30 | Outpatient (REF) | payer MEDICARE, OTHER ==
[2021-09-30 13:58] LABS: APPEARANCE, URINE CLEAR (CLEAR); BACTERIA, URINE AUTO NEGATIVE (NEGATIVE); BILIRUBIN, URINE AUTO NEGATIVE (NEGATIVE); BLOOD, URINE BLOOD 1+ (NEGATIVE); COLOR, URINE STRAW (YELLOW); GLUCOSE, URINE (UA) AUTO NEGATIVE (NEGATIVE); KETONE, URINE AUTO NEGATIVE (NEGATIVE); LEUKOCYTE ESTERASE, URINE AUTO NEGATIVE (NEGATIVE); NITRITE, URINE AUTO NEGATIVE (NEGATIVE); PROTEIN, URINE AUTO NEGATIVE (NEGATIVE); RBC, URINE AUTO 0 /HPF (0-3); SPECIFIC GRAVITY URINE AUTO 1.003 (1.002-1.035); SQUAMOUS EPITHELIAL CELL UR AU 0 /HPF (0-6); UROBILINOGEN, URINE AUTO 0.2 mg/dL (0.0-2.0); WBC, URINE AUTO 0 /HPF (0-3)
== END ==
LOC: M LAB REF 12:06
PROVIDERS: ATTEND Physician Assistant
DX: N39.0 Urinary tract infection, site not specified (principal)

== ENCOUNTER → 2021-11-06 | Outpatient (REF) | payer MEDICARE, OTHER | LOC: M LAB REF 19:55 | PROVIDERS: ATTEND Physician Assistant Medical | DX: R05.9 Cough, unspecified (principal) ==

== ENCOUNTER → 2023-02-09 | Outpatient (REF) | payer MEDICARE, OTHER ==
[2023-02-09 12:46] LABS: APPEARANCE, URINE CLEAR (CLEAR); BACTERIA, URINE AUTO 2+ (NEGATIVE); BILIRUBIN, URINE AUTO NEGATIVE (NEGATIVE); BLOOD, URINE BLOOD 2+ (NEGATIVE); COLOR, URINE YELLOW (YELLOW); GLUCOSE, URINE (UA) AUTO NEGATIVE (NEGATIVE); KETONE, URINE AUTO NEGATIVE (NEGATIVE); LEUKOCYTE ESTERASE, URINE AUTO 3+ (NEGATIVE); MUCUS, URINE SMALL (NEGATIVE); NITRITE, URINE AUTO NEGATIVE (NEGATIVE); PROTEIN, URINE AUTO NEGATIVE (NEGATIVE); RBC, URINE AUTO 2 /HPF (0-3); SPECIFIC GRAVITY URINE AUTO 1.003 (1.002-1.035); SQUAMOUS EPITHELIAL CELL UR AU 0 /HPF (0-6); UROBILINOGEN, URINE AUTO 0.2 mg/dL (0.0-2.0); WBC, URINE AUTO 35 /HPF (0-3)
== END ==
LOC: M LAB REF 11:49
PROVIDERS: ATTEND Physician Assistant Medical
DX: N39.0 Urinary tract infection, site not specified (principal)

== ENCOUNTER → 2024-09-10 | Outpatient (REF) | payer MEDICARE, OTHER ==
[2024-09-10 17:21] LABS: APPEARANCE, URINE CLEAR (CLEAR); BACTERIA, URINE AUTO NEGATIVE (NEGATIVE); BILIRUBIN, URINE AUTO NEGATIVE (NEGATIVE); BLOOD, URINE BLOOD 2+ (NEGATIVE); COLOR, URINE STRAW (YELLOW); GLUCOSE, URINE (UA) AUTO NEGATIVE (NEGATIVE); KETONE, URINE AUTO NEGATIVE (NEGATIVE); LEUKOCYTE ESTERASE, URINE AUTO NEGATIVE (NEGATIVE); NITRITE, URINE AUTO NEGATIVE (NEGATIVE); PROTEIN, URINE AUTO NEGATIVE (NEGATIVE); RBC, URINE AUTO 1 /HPF (0-3); SPECIFIC GRAVITY URINE AUTO 1.003 (1.002-1.035); SQUAMOUS EPITHELIAL CELL UR AU 0 /HPF (0-6); UROBILINOGEN, URINE AUTO 0.2 mg/dL (0.0-2.0); WBC, URINE AUTO 0 /HPF (0-3)
== END ==
LOC: M LAB REF 16:56
PROVIDERS: ATTEND Physician Assistant
DX: N39.0 Urinary tract infection, site not specified (principal)